=== PATIENT | male | born 1960 | race Caucasian/White ===

== ENCOUNTER 2019-02-21 14:54 | Emergency (ER) | payer BC, OTHER ==
--- NOTE | 2019-02-21 16:25 | EDM.PDOC ---
ED HPI GENERAL MEDICAL PROBLEM - General Chief Complaint: Cardiovascular Problem Stated Complaint: HIGH BP Time Seen by Provider: 02/21/19 16:20 - History of Present Illness INITIAL COMMENTS - FREE TEXT/NARRATIVE: 58-year-old male presents emergency room with elevated blood pressure. patient is doses blood pressures been going up is currently taking metoprolol 50 mg twice a day and losartan 100 mg a day. Today's measurements were systolic over 200. He did not have chest pain chest pressure breathing difficulties or shortness of breath associated with this he did not have a headache and otherwise feels just fine. His blood pressure was indeed elevated when he came here however with observation he did come down a little bit. - Related Data Allergies Allergy/AdvReac Type Severity Reaction Status Date / Time No Known Allergies Allergy Verified 02/21/19 15:01 Home Meds: Home Meds Chlorthalidone 25 mg PO DAILY #30 tab 02/21/19 [Rx] Losartan Potassium 100 mg PO DAILY 02/21/19 [History] Metoprolol Succinate 50 mg PO DAILY 02/21/19 [History] Past Medical History HEENT History: Reports: Impaired Vision Cardiovascular History: Reports: Heart Murmur, Hypertension Other Cardiovascular History: Murmur DX in September Respiratory History: Reports: None Gastrointestinal History: Reports: Chronic Diarrhea Genitourinary History: Reports: None Musculoskeletal History: Reports: Back Pain, Chronic Neurological History: Reports: None Psychiatric History: Reports: None Endocrine/Metabolic History: Reports: None Hematologic History: Reports: None Immunologic History: Reports: None Oncologic (Cancer) History: Reports: None Dermatologic History: Reports: None - Infectious Disease History Infectious Disease History: Reports: None - Past Surgical History HEENT Surgical History: Reports: Oral Surgery, Tonsillectomy Social & Family History - Family History Cardiac: Reports: ME Neurological: Reports: CVA - Tobacco Use Smoking Status *Q: Current Every Day Smoker Years of Tobacco use: 30 Packs/Tins Daily: 1.5 - Caffeine Use Caffeine Use: Reports: Coffee - Recreational Drug Use Recreational Drug Use: No ED ROS GENERAL - Review of Systems Review Of Systems: See Below Constitutional: Reports: No Symptoms HEENT: Reports: No Symptoms Respiratory: Reports: No Symptoms Cardiovascular: Reports: No Symptoms GI/Abdominal: Reports: No Symptoms : Reports: No Symptoms Neurological: Reports: No Symptoms ED EXAM, GENERAL - Physical Exam Exam: See Below Exam Limited By: No Limitations General Appearance: Alert, No Apparent Distress Head: Atraumatic, Normocephalic Neck: Normal Inspection. No: Lymphadenopathy (L), Lymphadenopathy (R) Respiratory/Chest: No Respiratory Distress, Lungs Clear, Normal Breath Sounds Cardiovascular: Regular Rate, Rhythm, No Edema, No Murmur GI/Abdominal: Normal Bowel Sounds, Soft, Non-Tender, No Abnormal Bruit, No Mass Back Exam: Normal Inspection. No: CVA Tenderness (L), CVA Tenderness (R) Extremities: Normal Inspection, No Pedal Edema Course - Vital Signs Last Recorded V/S: Last Vital Signs Temp 36.8 C 02/21/19 16:10 Pulse 60 02/21/19 16:10 Resp 20 02/21/19 16:10 BP 217/97 H 02/21/19 16:10 Pulse Ox 99 02/21/19 16:10 - Orders/Labs/Meds Labs: Laboratory Tests 02/21/19 02/21/19 Range/Units 16:53 16:53 WBC 8.45 (4.23-9.07) K/mm3 RBC 4.36 L (4.63-6.08) M/mm3 Hgb 14.6 (13.7-17.5) gm/dl Hct 41.8 (40.1-51.0) % MCV 95.9 H (79.0-92.2) fl MCH 33.5 H (25.7-32.2) pg MCHC 34.9 (32.2-35.5) g/dl RDW Std Deviation 43.6 (35.1-43.9) fL Plt Count 161 L (163-337) K/mm3 MPV 10.7 (9.4-12.3) fl Neutrophils % (Manual) 48 (40-60) % Band Neutrophils % 0 (0-10) % Lymphocytes % (Manual) 46 H (20-40) % Atypical Lymphs % 0 % Monocytes % (Manual) 2 (2-10) % Eosinophils % (Manual) 4 (0.8-7.0) % Basophils % (Manual) 0 L (0.2-1.2) Platelet Estimate Adequate Plt Morphology Comment Normal RBC Morph Comment Normal Sodium 140 (136-145) mEq/L Potassium 3.6 (3.5-5.1) mEq/L Chloride 104 (98-107) mEq/L Carbon Dioxide 25 (21-32) mEq/L Anion Gap 14.6 (5-15) BUN 16 (7-18) mg/dL Creatinine 1.0 (0.7-1.3) mg/dL Est Cr Clr Drug Dosing 77.90 mL/min Estimated GFR (MDRD) > 60 (>60) mL/min BUN/Creatinine Ratio 16.0 (14-18) Glucose 101 (74-106) mg/dL Calcium 8.8 (8.5-10.1) mg/dL Total Bilirubin 0.7 (0.2-1.0) mg/dL AST 18 (15-37) U/L ALT 31 (16-63) U/L Alkaline Phosphatase 65 (46-116) U/L Total Protein 7.0 (6.4-8.2) g/dl Albumin 3.8 (3.4-5.0) g/dl Globulin 3.2 gm/dL Albumin/Globulin Ratio 1.2 (1-2) Meds: Medications Discontinued Medications Generic Name Dose Route Start Last Admin Trade Name Ivánq PRN Reason Stop Dose Admin Chlorthalidone 25 mg 02/21/19 18:24 02/21/19 18:33 Chlorthalidone PO 02/21/19 18:25 25 mg ONETIME ONE Administration Potassium Chloride 20 meq 02/21/19 17:46 02/21/19 18:19 Klor-Con M20 PO 02/21/19 17:47 Not Given ONETIME ONE Potassium Chloride 20 meq 02/21/19 18:08 02/21/19 18:19 Klor-Con M20 PO 02/21/19 18:09 20 meq ONETIME ONE Administration - Re-Assessments/Exams Free Text/Narrative Re-Assessment/Exam: 02/21/19 18:54 Labs look okay is potassium is a little low still in the normal range however, because I'm anticipating started him on chlorthalidone I gave him 20 mEq of oral potassium. We'll discharge at this time Departure - Departure Time of Disposition: 18:56 Disposition: Home, Self-Care 01 Clinical Impression: Hypertension Prescriptions: Chlorthalidone 25 mg PO DAILY #30 tab Instructions: Hypertension, [id number] Referrals: Edvin Pack Jr, MD [Primary Care Provider] - Forms: ED Department Discharge Additional Instructions: Return to the emergency room with any questions problems or worsening symptoms. Have your blood pressure rechecked in the clinic at the end of this week if possible. You have been started on chlorthalidone this is for blood pressure. However, lab monitoring should be performed in the beginning of treatment to ensure the potassium doesn't drop too much while taking this Sepsis Event Note - Evaluation Sepsis Screening Result: No Definite Risk - Focused Exam Vital Signs: Vital Signs Temp Pulse Resp BP Pulse Ox 02/21/19 16:10 36.8 C 60 20 217/97 H 99 02/21/19 15:06 36.6 C 62 16 223/102 H 98 Date Exam was Performed: 02/21/19 Time Exam was Performed: 19:40
[2019-02-21] MEDS ORDERED: Potassium Chloride 20 MEQ Tab.ER PO ONE ×2 (17:46→18:08)
[2019-02-21] MEDS ORDERED: Chlorthalidone 25 MG Tab PO ONE (18:24)
== END 2019-02-21 19:11 | disposition home or self-care (01) ==
LOC: JD.ED 14:54
DX: I10 Essential (primary) hypertension (principal); F17.210 Nicotine dependence, cigarettes, uncomplicated; Z79.899 Other long term (current) drug therapy
CPT/HCPCS: 36415; 80053; 85007; 85027; 99283; A9270

== ENCOUNTER 2022-08-16 09:42 | Day surgery (SDC) | payer BC, OTHER ==
[~2022-08-16 09:42] MED LIST: Lactated Ringers 1,000 ML IV SCH; Lidocaine 4% Crm 5 Gm with Transparent Dressing Kit TOP PRN; Sodium Chloride 0.9% 10 ML Syringe FLUSH PRN
[2022-08-16] MEDS ORDERED: Propofol 200 MG/20 ML SDV ONE (11:15)
[2022-08-16] MEDS ORDERED: Midazolam 1 MG/ML 2 ML SDV ONE ×2 (11:16)
[2022-08-16] MEDS ORDERED: fentaNYL 100 MCG/2 ML SDV ONE (11:16)
[2022-08-16] MEDS ORDERED: ePHEDrine 50 MG/ML SDV ONE (11:35)
== END 2022-08-16 12:56 | disposition home or self-care (01) ==
LOC: JD.SDS 09:42
PROVIDERS: ATTEND Surgery
DX: Z12.11 Encounter for screening for malignant neoplasm of colon (principal); D12.4 Benign neoplasm of descending colon; K63.5 Polyp of colon; K57.30 Diverticulosis of large intestine without perforation or abscess without bleeding; K64.8 Other hemorrhoids; Z53.09 Procedure and treatment not carried out because of other contraindication; I10 Essential (primary) hypertension; E78.00 Pure hypercholesterolemia, unspecified; F41.9 Anxiety disorder, unspecified; F17.210 Nicotine dependence, cigarettes, uncomplicated; Z98.890 Other specified postprocedural states; Z79.899 Other long term (current) drug therapy
CPT/HCPCS: 45380; J2250; J2704; J3010; J7120; J3490